=== PATIENT | female | born 1980 | race Caucasian/White ===

== ENCOUNTER 2020-04-04 10:38 | Emergency (ER) | payer OTHER ==
[~2020-04-04] VITALS: Ht 160 cm; Wt 49.9 kg
[~2020-04-04 10:38] MED LIST: AMOXICILLIN 50500 MG PO; ANTIPYRINE-BENZ10 ML OTIC; BENTYL20 MG PO; CLONIDINE0.1 PO; CORTISPORIN-TC10 ML OT; IBUPROFEN 600600 M1 PO; IBUPROFEN 800800 M1 PO; LOPERAMIDE 2 MG2 M1 PO; NORCO 5-325 TA1 EACH PO; PENICILLIN V P500 MG PO; PENICILLIN VK250 MG PO; TRAMADOL 50 MG50 MG PO
[2020-04-04] MEDS ORDERED: AMOXICILLIN 50500 MG PO (11:58)
[2020-04-04] MEDS ORDERED: NORCO 5-325 TA1 EAC2 PO (11:58)
[2020-04-04 12:05] VITALS: BP 117/81
== END 2020-04-04 12:06 | disposition home or self-care (01) ==
LOC: M.ERS 10:38
DX: K02.9 Dental caries, unspecified (principal); F17.210 Nicotine dependence, cigarettes, uncomplicated